=== PATIENT | female | born 2000 | race Caucasian/White ===

== ENCOUNTER 2024-01-04 07:06 | Inpatient (IN) | payer OTHER, SELFPAY ==
[2024-01-04] VITALS (52 sets, daily range): BP systolic 115–165; BP diastolic 63–98; PULSE 88–132; RESP 16–24; TEMP 36.7–37.3; O2SAT 90–100; BMI 24.7
[2024-01-04 06:54] LABS: ROM Internal Control Test YES-OK TO RESULT pt. (Internal QC)
[2024-01-04 06:55] LABS: ROM Patient Test POSITIVE (Negative)
--- NOTE | 2024-01-04 07:54 | PCM.HP.OB ---
HPI - General General Date of Admission: 01/04/24 Date of Service: 01/04/24 Chief Complaint: ROM HPI Narrative JILLIAN GHOTRA, is a 23 F who presents donnie and leaking fluid since 1 am. No bleeding. GBS pos Maternal Data Information Final DOMINIK: 01/01/24 Gestational age: 40+3 PFSH PFSH Home Medications ?Medication ?Instructions ?Recorded ?Last Taken ?Type PNV#14-iron fum-FA#2-[id number]-[id number] cap PO 01/04/24 01/03/24 History 27 mg iron-1 mg-300 mg-50 mg capsule bupropion HCl 150 mg 24 hr tablet, 150 mg PO DAILY 01/04/24 Unknown History extended release (Wellbutrin XL) bupropion HCl 75 mg tablet 75 mg PO DAILY depression 01/04/24 01/03/24 History ferrous sulfate 325 mg (65 mg 325 mg PO QODAY 01/04/24 Unknown History iron) tablet (Iron (ferrous sulfate)) quetiapine 50 mg tablet (Seroquel) 50 mg PO DAILY 01/04/24 01/02/24 History Allergy/AdvReac Type Severity Reaction Status Date / Time penicillin G Allergy Intermediate Rash Verified 01/04/24 05:51 History Elective abortions Hx Para 0 Spontaneous abortions Hx # Term Pregnancies Ectopic pregnancies Hx # Pregnancies Multiple births # of living children NST FHR Rate Baby A Baseline: 140 Variability:: Moderate Decelerations:: None NST Reactive:: Yes FHR Category:: Category I Uterine Activity:: q 3 Vital Signs Vital Signs Vital Signs: 01/04/24 06:13 01/04/24 06:13 01/04/24 06:13 Temperature Temperature Source Temporal Pulse Rate 103 H Respiratory Rate Blood Pressure 125/90 H BP Systolic 125 BP Diastolic 90 Pulse Ox 01/04/24 06:13 01/04/24 06:13 01/04/24 06:13 Temperature 98.0 F Temperature Source Pulse Rate Respiratory Rate 16 Blood Pressure BP Systolic BP Diastolic Pulse Ox 98 01/04/24 07:25 01/04/24 07:25 01/04/24 07:25 Temperature Temperature Source Temporal Pulse Rate 93 Respiratory Rate Blood Pressure 165/98 H BP Systolic 165 BP Diastolic 98 Pulse Ox 01/04/24 07:25 01/04/24 07:25 01/04/24 07:25 Temperature Temperature Source Pulse Rate 94 Respiratory Rate 16 Blood Pressure BP Systolic BP Diastolic Pulse Ox 98 01/04/24 07:25 01/04/24 07:26 01/04/24 07:26 Temperature 98.7 F Temperature Source Pulse Rate 97 Respiratory Rate Blood Pressure BP Systolic BP Diastolic Pulse Ox 98 01/04/24 07:27 01/04/24 07:27 Temperature Temperature Source Pulse Rate 100 Respiratory Rate Blood Pressure 130/85 H BP Systolic 130 BP Diastolic 85 Pulse Ox Weight Weight: 65.408 kg Body Mass Index (BMI) 24.7 Physical Exam Const alert and no apparent distress General Appearance: cooperative HEENT normocephalic Resp normal respiratory effort Cardio regular rate GI soft to palpation GI Narrative: gravid, nontender, appropriate for gestational age Extremity no calf tenderness General Extremity: edema Skin no wounds Rashes: No rashes noted Psych activity/motor behavior normal Labs Labs Labs: No Data to Display Assessment & Plan (1) SROM (spontaneous rupture of membranes): (2) 40 weeks gestation of : (3) Positive GBS test: PLAN: Ancef PLAN: Plan admit for labor
[2024-01-04] MEDS: Lactated Ringers 1,000 ML 999 ML IV (08:30)
[2024-01-04 08:54] LABS: Absolute Neutrophil Count 10.1 X10^3/uL (2.0-7.7); Basophil# 0.04 X10^3/uL; Basophil% 0.3 % (0-1); Eosinophil# 0.04 X10^3/uL; Eosinophils% 0.3 % (0-5); Hematocrit 36.9 % (37-47); Hemoglobin 12.3 g/dL (12.0-15.0); Lymphocyte % 13.1 % (19-41); Mean Corp Hgb Conc 33.3 g/dL (32-36); Mean Corpuscular Hgb 28.1 pg (27.0-32.0); Mean Corpuscular Volume 84.4 fL (81-99); Mean Platelet Vol. 11.9 fl (6.2-12.0); Monocyte# 0.91 X10^3/uL; NRBC Flagged by Analyzer 0 % (0-5); Neutrophil # 10.14 X10^3/uL (2.7-7.7); Neutrophil % 78.1 % (47-70); Platelet Count 189 K/mm3 (150-450); RBC Distribution Width CV 14.9 % (11.6-14.6); RBC Distribution Width SD 45.7 fl (35.1-43.9); Red Blood Count 4.37 M/mm3 (4.2-5.4)
--- NOTE | 2024-01-04 08:54 | PCM.PN.CNM ---
Subjective Subjective Patient seen at bedside. Breathing through contractions and requesting epidural. Objective Data Objective Data Vital Signs: Vital Signs Temp Pulse Resp BP Pulse Ox 98.7 F 100 16 130/85 H 98 01/04/24 07:25 01/04/24 07:27 01/04/24 07:25 01/04/24 07:27 01/04/24 07:26 Weight: 144 lb 3.2 oz Body Mass Index (BMI) 24.7 Lab / Micro Data 01/04/24 08:30 Labs: Laboratory Results - last 24 hr 01/04/24 06:00: Vag Amniotic Fld Detect POSITIVE H 01/04/24 08:30: WBC 13.0 H, RBC 4.37, Hgb 12.3, Hct 36.9 L, MCV 84.4, MCH 28.1, MCHC 33.3, RDW Std Deviation 45.7 H, RDW Coeff of Jaime 14.9 H, Plt Count 189, MPV 11.9, Immature Gran % (Auto) 1.200 H, Neut % (Auto) 78.1 H, Lymph % (Auto) 13.1 L, [place] % (Auto) 7.0, Eos % (Auto) 0.3, Baso % (Auto) 0.3, Absolute Neuts (auto) 10.1 H, Absolute Lymphs (auto) 1.70, Nucleated RBC % 0 ROS Eyes Eyes: Denies blurry vision, change in vision or spots in vision ENT HEENT: Denies dizziness or headache(s) Cardiovascular Cardiovascular: Denies abdominal pain, chest pain or dyspnea Respiratory/Chest Respiratory/Chest: Denies cough, dyspnea, shortness of breath at rest or shortness of breath with exertion Gastrointestinal Gastrointestinal: Denies abdominal pain, diarrhea or vomiting Genitourinary Genitourinary: Denies change in urinary stream, difficulty urinating or dysuria Musculoskeletal Musculoskeletal: Reports none Integumentary Integumentary: Denies rash Neurologic Neurologic: Denies dizziness, headache(s), memory loss or weakness Psychiatric Psychiatric: Reports none Physical Exam Const alert, oriented x3 and no apparent distress General Appearance: cooperative Orientation / Consciousness: awake Exam Limitations: no limitations HEENT normocephalic Head and Scalp: normal to inspection Eyes General Eye: normal appearance of both eyes Neck full ROM and no lymphadenopathy Lymph Lymphatic: no lymphadenopathy noted Chest inspection of chest normal Resp normal respiratory effort, normal air movement and clear to auscultation bilaterally Effort and Inspection: able to speak in complete sentences and symmetric chest movement Cardio regular rate and regular rhythm GI normal to inspection, nondistended, normoactive bowel sounds Manual OB Exam: presentation cephalic Amniotic Fluid: clear amniotic fluid Back/Spine normal ROM Extremity full ROM and no calf tenderness Skin no rashes or lesions noted General Skin Exam: no breakdown Neuro oriented x3 and CN's II-XII intact bilaterally Psych mental status grossly normal and thought process normal NST FHR Rate Baby A Baseline: 135 Variability:: Moderate Accelerations:: 15 x 15 Decelerations:: None NST Reactive:: Yes FHR Category:: Category I Uterine Activity:: 2-3 minutes Assessment & Plan (1) Positive GBS test: (2) 40 weeks gestation of : (3) SROM (spontaneous rupture of membranes): (4) Anxiety and depression: (5) Penicillin allergy: PLAN: Plan CE /-1 SROM for clear fluid GBS positive - start Ancef due to PCN allergy Epidural when available
[2024-01-04] MEDS: Cefazolin 2 GM in 0.9% Normal Saline (100mL Bag) 100 ML IV (09:00)
[2024-01-04] MEDS: Lactated Ringers 1,000 ML 50 ML IV ×2 (09:31→12:49)
[2024-01-04 09:58] LABS: Syphilis Antibodies Non-reactive
[2024-01-04] MEDS: fentaNYL-bupivacaine (epidural) 100 ML BAG EPIDURAL ×3 (10:40→20:31)
--- NOTE | 2024-01-04 11:07 | PCM.PN.BLA ---
Progress Note At bedside to check on pt. She is comfortable with epidural. Assessment & Plan Assessment/Plan (1) Penicillin allergy: (2) Anxiety and depression: (3) Positive GBS test: (4) 40 weeks gestation of : (5) SROM (spontaneous rupture of membranes): PLAN: Cvx 1-2/50/-2 head well applied. Forebag ruptured for meconium stained fluid. order desk caller provider updated
[2024-01-04] MEDS: Oxytocin 15 Units/NS 250ml 15 UNITS/250 ML IV.SOLN 2 UNITS IV (12:49)
--- NOTE | 2024-01-04 12:52 | PN.OBGYN_ITS ---
Subjective Subjective Patient seen at bedside. Comfortable with epidural. Objective Data Objective Data Vital Signs: Vital Signs Temp Pulse Resp BP Pulse Ox 99.0 F 97 16 136/86 H 96 01/04/24 09:43 01/04/24 12:31 01/04/24 07:25 01/04/24 12:31 01/04/24 10:55 Weight: 144 lb 3.2 oz Body Mass Index (BMI) 24.7 Intake & Output: Intake and Output for Last 24 Hours 01/02/24 01/03/24 01/04/24 23:59 23:59 23:59 Intake Total 1275 / 1275 Balance 1275 / 1275 Lab / Micro Data 01/04/24 08:30 Labs: Laboratory Results - last 24 hr 01/04/24 06:00: Vag Amniotic Fld Detect POSITIVE H 01/04/24 08:30: WBC 13.0 H, RBC 4.37, Hgb 12.3, Hct 36.9 L, MCV 84.4, MCH 28.1, MCHC 33.3, RDW Std Deviation 45.7 H, RDW Coeff of Jaime 14.9 H, Plt Count 189, MPV 11.9, Immature Gran % (Auto) 1.200 H, Neut % (Auto) 78.1 H, Lymph % (Auto) 13.1 L, [place] % (Auto) 7.0, Eos % (Auto) 0.3, Baso % (Auto) 0.3, Absolute Neuts (auto) 10.1 H, Absolute Lymphs (auto) 1.70, Nucleated RBC % 0, Syphilis Total Ab Non- reactive, Blood Type A POSITIVE, Antibody Screen NEGATIVE Assessment & Plan (1) Penicillin allergy: (2) Anxiety and depression: (3) Positive GBS test: (4) 40 weeks gestation of : (5) SROM (spontaneous rupture of membranes): PLAN: Plan CE 250/-2 Forebag ruptured for meconium stained fluid NST reactive Start Pitocin at 2 mu/min and increase per orders Anticipate
[2024-01-04] MEDS: Cefazolin 1 GM/50 ML BAG IV (18:49)
[2024-01-04] MEDS: Ondansetron 4 MG/2 ML Vial IV (20:17)
[2024-01-04] MEDS: DiphenhydrAMINE 50 MG/ML Syringe IV (22:50)
[2024-01-05] VITALS (30 sets, daily range): BP systolic 104–155; BP diastolic 61–96; PULSE 88–131; RESP 16–22; TEMP 36.2–37.6; O2SAT 97–99
[2024-01-05] MEDS: fentaNYL-bupivacaine (epidural) 100 ML BAG EPIDURAL (01:30)
[2024-01-05] MEDS: Cefazolin 1 GM/50 ML BAG IV (01:33)
[2024-01-05] MEDS: Methylergonovine 0.2 MG/ML Ampul IM (05:58)
[2024-01-05] MEDS: Oxytocin 15 Units/NS 250ml 15 UNITS/250 ML IV.SOLN 83 UNITS IV (06:01)
--- NOTE | 2024-01-05 06:19 | EX.PCM.OBRPT ---
Assessment & Plan (1) (spontaneous vaginal delivery): (2) Laceration, obstetrical, second degree: (3) Care and examination of lactating mother: (4) Psychiatric disorder: COMMENT: ADHD (5) Anxiety and depression: Maternal Data Information DOMINIK Calculator Estimated Delivery Date Method Current WG Current Estimate 01/01/24 Manual 40w 4d Vaginal Delivery Maternal Presentation Maternal Presentation: Spontaneous Rupture of Membranes Maternal Presentation: at 40.3 weeks gestation with SROM Type of Induction: Pitocin (Augmentin) Operative Information Date of Procedure: 01/05/24 Pre-Operative Diagnosis: Term gestation, Spontaneous rupture of membranes Post-Operative Diagnosis: , Live Surgery / Procedure Performed: Spontaneous Vaginal Delivery Type of Anesthesia: Epidural Drain: Rebollar to straight drain Estimated Blood Loss: 450 Time of Delivery: 05:39 Findings Description of Procedure: Patient progressed to complete dilation. With good maternal effort, head delivered followed by anterior shoulder and remainder of infant body without any force, delay or traction. Vigorous female was delivered atraumatically and placed on maternal abdomen. Pitocin IV started for active management of the third stage of labor. Increased bleeding noted with removal of clots. 3 vessel cord clamped and cut after delay and placed immediately skin to skin with patient. Placenta delivered spontaneously and intact. Pitocin IV opened wide and Methergine IM x 1 dose given. Manual removal of several clots in vagina. Fundus firm and 2 below U. A second degree laceration was repaired with 3-0 Vicryl Rapide in usual fashion. Hemostasis obtained. Vaginal sweep performed. Fundus remains firm and bleeding hemostatic. Sponge and sharp counts correct. Patient and bonding well at this time. Dr. Harmon notified of delivery. Routine post orders placed. Presentation: Vertex Delayed Cord Clamping: Yes Post Vaginal Delivery Medications Given After Delivery: IV Pitocin Episiotomy Description: None Complication Complications: None
[2024-01-05] MEDS: Acetaminophen 500 MG Tablet PO (06:27)
[2024-01-05] MEDS: Naproxen 500 MG Tablet PO ×2 (08:27→16:55)
[2024-01-05] MEDS: buPROPion (XL) 150 MG TABLET.XL PO (09:34)
[2024-01-05] MEDS: buPROPion 75 MG Tablet PO (09:34)
[2024-01-05] MEDS: 0.9% Saline Lock 10 ML Syringe IV (09:35)
[2024-01-05] MEDS: Ferrous Sulfate 325 MG Tablet PO (12:32)
[2024-01-05] MEDS: Acetaminophen 500 MG Tablet 1000 MG PO (19:34)
[2024-01-05] MEDS: QUEtiapine 25 MG Tablet 50 MG PO (22:25)
[2024-01-05] MEDS: Benzocaine/Lanolin/Aloe Vera 85 GM Spray 1 SPRAY TOPICAL (23:31)
[2024-01-06 04:11] VITALS: BP 109/70; PULSE 80; O2SAT 99
[2024-01-06 04:18] VITALS: BP 109/70; PULSE 82; RESP 16; TEMP 36.6; O2SAT 99
[2024-01-06] MEDS: Acetaminophen 500 MG Tablet 1000 MG PO ×2 (05:49→11:48)
[2024-01-06] MEDS: Naproxen 500 MG Tablet PO (05:50)
[2024-01-06 06:13] LABS: Absolute Lymphocyte Count 2.32 X10^3/uL (0.83-4.51); Absolute Neutrophil Count 11.5 X10^3/uL (2.0-7.7); Basophil# 0.04 X10^3/uL; Basophil% 0.3 % (0-1); Eosinophil# 0.07 X10^3/uL; Eosinophils% 0.5 % (0-5); Hematocrit 27.6 % (37-47); Hemoglobin 9.1 g/dL (12.0-15.0); Lymphocyte # 2.32 X10^3/ul (0.83-4.51); Lymphocyte % 15.3 % (19-41); Mean Corpuscular Hgb 28.8 pg (27.0-32.0); Mean Corpuscular Volume 87.3 fL (81-99); Mean Platelet Vol. 12.2 fl (6.2-12.0); Monocyte# 1.02 X10^3/uL; Monocyte% 6.7 % (0-10); NRBC Flagged by Analyzer 0 % (0-5); Neutrophil # 11.46 X10^3/uL (2.7-7.7); Neutrophil % 75.8 % (47-70); Platelet Count 131 K/mm3 (150-450); RBC Distribution Width CV 15.5 % (11.6-14.6); RBC Distribution Width SD 49.4 fl (35.1-43.9); Red Blood Count 3.16 M/mm3 (4.2-5.4); White Blood Count 15.1 K/mm3 (4.4-11.0)
[2024-01-06 09:46] VITALS: BP 122/74; PULSE 119; O2SAT 100
[2024-01-06 09:54] VITALS: BP 122/74; PULSE 118; RESP 16; TEMP 36.6; O2SAT 100
--- NOTE | 2024-01-06 10:32 | PCM.PN.OB ---
Subjective Subjective Doing well per patient and nursing staff. Ambulating and taking PO without difficulty. Voiding and passing flatus. Pain controlled. , services for assistance. Denies headache, visual changes, chest pain, shortness of breath, leg pain or increased bleeding. Lochia normal. Objective Data Objective Data Vital Signs: Vital Signs Temp Pulse Resp BP Pulse Ox O2 Del Method 97.9 F 118 H 16 122/74 H 100 Room Air 01/06/24 09:54 01/06/24 09:54 01/06/24 09:54 01/06/24 09:54 01/06/24 09:54 01/06/24 09:54 Oxygen Delivery Method Room Air Weight: 144 lb 3.2 oz Body Mass Index (BMI) 24.7 Intake & Output: Intake and Output for Last 24 Hours 01/04/24 01/05/24 01/06/24 23:59 23:59 23:59 Intake Total 1363.00 / 1363.00 1580.34 / 1580.34 Output Total 900 / 900 1999 / 1999 Balance 463.00 / 463.00 -419.66 / -419.66 Lab / Micro Data 01/06/24 05:55 Labs: Laboratory Results - last 24 hr 01/06/24 05:55: WBC 15.1 H, RBC 3.16 L, Hgb 9.1 L, Hct 27.6 L, MCV 87.3, MCH 28.8, MCHC 33.0, RDW Std Deviation 49.4 H, RDW Coeff of Jaime 15.5 H, Plt Count 131 L, MPV 12.2 H, Immature Gran % (Auto) 1.400 H, Neut % (Auto) 75.8 H, Lymph % (Auto) 15.3 L, [place] % (Auto) 6.7, Eos % (Auto) 0.5, Baso % (Auto) 0.3, Absolute Neuts (auto) 11.5 H, Absolute Lymphs (auto) 2.32, Nucleated RBC % 0 ROS Constitutional Constitutional: Reports systems reviewed and no addt'l complaints, except as documented; Denies headache(s) Eyes Eyes: Denies acute decrease in peripheral vision, blurry vision or change in vision ENT HEENT: Reports systems reviewed and no addt'l complaints, except as documented Cardiovascular Cardiovascular: Denies chest pain or dizziness Respiratory/Chest Respiratory/Chest: Denies cough, dyspnea, dyspnea on exertion, shortness of breath at rest or shortness of breath with exertion Gastrointestinal Gastrointestinal: Denies abdominal pain, diarrhea, nausea or vomiting Genitourinary Genitourinary: Denies abdominal discomfort Musculoskeletal Musculoskeletal: Denies limited range of motion Integumentary Integumentary: Reports systems reviewed and no addt'l complaints, except as documented Neurologic Neurologic: Reports systems reviewed and no addt'l complaints, except as documented Psychiatric Psychiatric: Reports systems reviewed and no addt'l complaints, except as documented Endocrine Endocrinology: Reports systems reviewed and no addt'l complaints, except as documented Hematologic/Lymphatic Hematologic/Lymphatic: Reports systems reviewed and no addt'l complaints, except as documented Allergic/Immunologic Allergic/Immunologic: Reports systems reviewed and no addt'l complaints, except as documented Physical Exam Const alert and oriented x3 General Appearance: cooperative Orientation / Consciousness: awake, oriented to person, oriented to place and oriented to time Exam Limitations: no limitations HEENT normocephalic Head and Scalp: normal to inspection, normocephalic and atraumatic Face and Sinus: normal facial exam Eyes General Eye: normal appearance of both eyes Neck full ROM Chest Chest: symmetrical chest wall rise Resp normal respiratory effort and normal air movement Auscultation: clear to auscultation bilaterally Cardio regular rate, regular rhythm, S1 normal heart sound, S2 normal heart sound, no murmurs, no rub, no gallops and no clicks GI normal to inspection, nondistended, normoactive bowel sounds and non-tender appearance of the vagina normal Bladder / Kidney Exam: no CVA tenderness Back/Spine normal ROM Extremity normal to inspection and full ROM Skin no rashes or lesions noted Neuro oriented x3, CN's II-XII intact bilaterally and moves all extremities Sensorium / Orientation: awake, alert and oriented to person Motor Exam: clonus absent Deep Tendon Reflexes: Rt Patellar (L4): 2+ and Lt Patellar (L4): 2+ Assessment & Plan (1) Care and examination of lactating mother: (2) Laceration, obstetrical, second degree: (3) (spontaneous vaginal delivery): (4) Depression: (5) Psychiatric disorder: COMMENT: ADHD PLAN: Plan 1) Routine care, PPD #1 2) Vitals signs stable 3) Pain controlled 4) , services PRN 5) D/C home 6) Follow up in 2 weeks and 6 weeks
--- NOTE | 2024-01-06 11:33 | PCM.DC.SUM ---
Providers Date of Admission: 01/04/24 Primary Care Physician: Dr. Lonny White DO Reason For Visit: VAG Diagnosis Discharge Diagnosis (1) Care and examination of lactating mother: Status: Acute Code(s): Z39.1 - Encounter for care and examination of lactating mother (2) Laceration, obstetrical, second degree: Status: Acute Code(s): O70.1 - Second degree perineal laceration during delivery (3) (spontaneous vaginal delivery): Status: Acute Code(s): O80 - Encounter for full-term uncomplicated delivery (4) Depression: Status: Acute Code(s): F32.A - Depression, unspecified (5) Psychiatric disorder: Status: Acute Code(s): F99 - Mental disorder, not otherwise specified Plan 1) Routine care, PPD #1 2) Vitals signs stable 3) Pain controlled 4) , services PRN 5) D/C home 6) Follow up in 2 weeks and 6 weeks Medications at Discharge Home Medications PNV#14-iron fum-FA#1-[id number]-dpsnhhcp 27 mg iron-1 mg-300 mg-50 mg capsule cap PO 01/04/24 bupropion HCl 150 mg 24 hr tablet, extended release (Wellbutrin XL) 150 mg PO DAILY 01/04/24 bupropion HCl 75 mg tablet 75 mg PO DAILY depression 01/04/24 ferrous sulfate 325 mg (65 mg iron) tablet (Iron (ferrous sulfate)) 325 mg PO QODAY 01/04/24 quetiapine 50 mg tablet (Seroquel) 50 mg PO DAILY 01/04/24 acetaminophen 500 mg tablet 1,000 mg (2 x 500 mg) PO Q6H PRN PRN Pain 1-10 Or Fever #0 tabs 01/06/24 naproxen 500 mg tablet 500 mg PO Q8H PRN PRN Pain Score 1-10 #0 tabs 01/06/24 Hospital Course Summary of Care Provided Minutes Spent on Discharge: 15 Weight / BMI Weight Weight: 144 lb 3.2 oz Body Mass Index (BMI) 24.7 ABG / Lab / Microbiology Data 01/06/24 05:55 Laboratory: Laboratory Results - last 24 hr 01/06/24 05:55: WBC 15.1 H, RBC 3.16 L, Hgb 9.1 L, Hct 27.6 L, MCV 87.3, MCH 28.8, MCHC 33.0, RDW Std Deviation 49.4 H, RDW Coeff of Jaime 15.5 H, Plt Count 131 L, MPV 12.2 H, Immature Gran % (Auto) 1.400 H, Neut % (Auto) 75.8 H, Lymph % (Auto) 15.3 L, [place] % (Auto) 6.7, Eos % (Auto) 0.5, Baso % (Auto) 0.3, Absolute Neuts (auto) 11.5 H, Absolute Lymphs (auto) 2.32, Nucleated RBC % 0 D/C Instructions Discharge Diet: No restrictions Discharge Activity: Return to Normal Activity, May Drive, May Shower and May Take a Tub Bath May resume sexual activity in: 6 weeks Weight Bearing Status: Full weight bearing Call your doctor if you observe: Fever of 101 or Higher, Inability to urinate, Using more than 1 pad per hour, Shortness of breath, Chest pain, Increased palpitations (irregular heartbeat), Calf discomfort and Uncontrolled pain Please Follow Up With: Marysol Lerma CNM When: 2 week virtual visit and 6 week visit Meaningful Use Info Meaningful Use Meaningful Use Diagnoses (Choose all that apply): None applicable Ischemic Stroke Statin Dosing Therapy Reference: STATIN DOSE THERAPY REFERENCE: * Patients > 75 years receive moderate or high dose statin therapy. * Patients 75 years or YOUNGER should receive HIGH intensity statin dose unless contraindicated. You will be required to document reason for non-treatment if statin daily dose does not meet guidelines. HIGH DOSE STATIN THERAPY DAILY Atorvastatin > than or = to 40 mg Rosuvastatin > than or = to 20 mg Amlodipine + Atorvastatin > than or = to 2.5/40 mg Ezetimibe + Simvastatin 10/80 mg Simvastatin 80mg Discharge Plan Admission Admit Date/Time: 01/04/24 07:06 Primary Reason for Your Visit: Vaginal Delivery Attending Provider: Netta Marrufo Primary Care Provider: Lonny White Discharge Orders/Prescriptions Prescriptions: New acetaminophen 500 mg Tablet 1,000 mg PO Q6H PRN PRN (Reason: Pain 1-10 Or Fever) Qty: 0 0RF naproxen 500 mg Tablet 500 mg PO Q8H PRN PRN (Reason: Pain Score 1-10) Qty: 0 0RF Continued bupropion HCl 75 mg tablet 75 mg PO DAILY bupropion HCl [Wellbutrin XL] 150 mg tablet extended release 24 hr 150 mg PO DAILY PNV #14-iron-FA#3-qtf-icddyvac 27 mg iron-1 mg -300 mg-50 mg capsule PO quetiapine [Seroquel] 50 mg tablet 50 mg PO DAILY ferrous sulfate [Iron (ferrous sulfate)] 325 mg (65 mg iron) tablet 325 mg PO QODAY Referrals / Follow Up: Netta Marrufo CNM [Med Staff - [facility]] - Lonny White DO [Primary Care Provider] - Disposition Disposition (needs filled in before D/C Order can be placed): Home, Self Care
[2024-01-06] MEDS: buPROPion 75 MG Tablet PO (12:09)
[2024-01-06] MEDS: buPROPion (XL) 150 MG TABLET.XL PO (12:10)
--- NOTE | 2024-01-06 15:00 | CASEMGMT ---
Social Work Assessment Labor and Delivery Unit [facility] [place] [address] Phone number: Date of Referral: 01/05/2024 Time of Referral: 17:57 Referred By: Melissa Soto Date of Intervention: 01/06/2024 Time of Intervention: 15:00 Reason for Referral: Mental Health; Hx of Anxiety, Depression and ADHD. History obtained from: Medical records, mother of baby (MOB) and father of baby (FOB).? Household composition: MOB Gena, age 25, FOB Yosi, age 23 and daughter Doreen, born 01/05/2024. Patient's parent/guardian status: MOB and FOB have been together for 6 years and for 4 years. ?Both are actively involved and will be providing care for baby. MOB denied any concerns with domestic violence and described a positive and supportive relationship with the FOB. Medical History: ?Gravita: 1, Para: 1. CAROLINE received PNC with Rachel Krause beginning at 8 weeks and 0 days. Visits were observed to be regular. ?Apgars: 8 and 9. Weight: 3400 grams. Director Of Program Management: Dr. White. Educational Status: MOB and FOB denied any issues or concerns with reading or writing. MOB earned her High School diploma and the FOB earned his GED. Financial Status: MOB and FOB reported their income is sufficient to meet the needs of their family at this time. 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 and is taking 2-3 weeks of paternity leave. Infant Supplies: MOB and FOB reported they have all the supplies they need for baby at this time including but not limited to: car seat, bassinet, crib, diapers, breast pump, bottles and clothing. Childcare/Caregiver(s):? MOB reported both she as well as the FOB will be the primary caregivers and that the maternal grandparents (MGP?s) and paternal grandparents (PGP?s) as well as other family members will also help provide care to as needed. ? Transportation:? MOB and FOB reported they are both licensed drivers and have a reliable vehicle to take baby to and from all medical appointments. No transportation issues identified. Programs/Agencies Involved: MOB is currently involved with [facility] where she has been going for counseling for 3 years[address] MOB see?s Dr. Robledo. No other agencies are involved at this time. Children Services/Legal Issues:? Denied. Behavioral Health Issues: ??Mental Health History: MOB has been diagnosed with Anxiety, Depression and ADHD. MOB is currently on medication which MOB reported effectively manages symptoms at this time. FOB has a history of anxiety which FOB reported is also managed at this time. FOB is not involved in counseling or on any medication to treat anxiety. ?Substance Use History:? MOB and FOB denied any history or current drug or alcohol abuse/use. ???Family History: PGM is an alcoholic however is currently sober.? The parents and siblings of the PGM are also reportedly alcoholics. ??Drug Screens: ?None obtained at the time of this admission. ?appliance worker administered the [place].? MOB?s score was an 11.? appliance worker provided verbal education about the screening tool as well as scores to look out for in the future which MOB reported she understood and will continue working on concerns with her current mental health therapist. ? Family/Social Stressors: ?MOB and FOB denied any current family or social stressors. Support Systems: Ample.? MOB and FOB identified their biggest supports as each other as well as MGP?s, PGP?s and sisters. Depression/Shaken Baby/Safe Sleeping: appliance worker provided verbal and written education on PPD, Safe Sleeping and Shaken Baby.? Parents verbalized an understanding. ??? ASSESSMENT:? MOB and FOB provided consent to social work visit. Upon arrival, MOB was holding in a chair and FOB had also just walked in and sat on the near-by couch next to MOB and . Both MOB and FOB were verbally engaged throughout the visit and both were very cooperative. appliance worker observed positive interaction between the MOB and FOB as well as positive interaction towards by both parents.? Both MOB and FOB were very attentive and gentle with , the FOB offered help a few times with throughout the visit and changed ?s diaper and gave back to MOB to breastfeed.? FOB was very involved and helpful to and MOB. FOB made sure was latched on for and offered to get MOB a snack. MOB felt comfortable asking for help when needed and MOB and FOB appeared to work well together as a team. Towards the end of the visit, forensic social worker requested to meet and speak with MOB alone which MOB and FOB were both agreeable to. MOB reported feeling safe in the home and denied any previous or current domestic violence, unmanaged mental health issues or drug or alcohol abuse. Safe Plan of Care for related to substance use: N/A; not needed. ? PLAN:? Baby to be discharged home when ready.? appliance worker also provided written information on depression, depression resources and Help Me Grow as additional resources offered by forensic social worker which MOB and FOB accepted. No other services requested or indicated. Sunshine Coyne, ELECTRIC MOTOR REPAIRING SUPERVISOR, BOX [employer]
[2024-01-06 16:29] VITALS: BP 119/77; PULSE 97; PULSE 99; RESP 16; O2SAT 99
== END 2024-01-06 17:40 | disposition home or self-care (01) | DRG 807 ==
LOC: WPOUT 07:12 → WP 07:31
PROVIDERS: Obstetrics & Gynecology; Admitting Provider Advanced Practice Midwife; PCP Family Medicine; Referring Provider Advanced Practice Midwife; Visit Provider Advanced Practice Midwife
DX: O48.0 Post-term pregnancy (principal); Z37.0 Single live birth; O99.344 Other mental disorders complicating childbirth; F32.A Depression, unspecified; F41.9 Anxiety disorder, unspecified; Z3A.40 40 weeks gestation of pregnancy; O99.824 Streptococcus B carrier state complicating childbirth; O77.0 Labor and delivery complicated by meconium in amniotic fluid; O70.1 Second degree perineal laceration during delivery; F90.9 Attention-deficit hyperactivity disorder, unspecified type; Z88.0 Allergy status to penicillin; Z79.899 Other long term (current) drug therapy
CPT/HCPCS: 59025; 59050; 84112; 85025; 86780; 86850; 86900; 86901; 99221; J7120; A4216; G0378; J2405; J3490